=== PATIENT | male | born 1985 | race American Indian/Alaskan Native ===

== ENCOUNTER 2021-08-15 22:46 | Emergency (ER) | payer SELFPAY ==
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
[2021-08-16 07:47] VITALS: BP 132/79
== END 2021-08-16 07:44 | disposition home or self-care (01) ==
LOC: ED 22:46
DX: M79.18 Myalgia, other site (principal); V89.2XXA Person injured in unspecified motor-vehicle accident, traffic, initial encounter; Y93.89 Activity, other specified; Y92.488 Other paved roadways as the place of occurrence of the external cause; Y99.8 Other external cause status
CPT/HCPCS: 99282